=== PATIENT | female | born 1950 | race Caucasian/White ===

== ENCOUNTER 2020-10-29 19:03 | Outpatient (REF) | payer MEDICARE, BC, SELFPAY ==
--- NOTE | 2020-10-29 14:52 | BONE_PTH ---
PATIENT: Dayanna Akers LOC: [facility]#:[id number] AGE/SX: 70/F ROOM: RE10/29/[address]: Thuan Morfin : 1950 BED: DIS: 10/29/2020 SPEC #: [id number] RECD: 11/13/20 11:01 STATUS: MANDEEP CEJA #: [id number] TRAVIS: 10/29/20 14:[address]: Thuan Morfin DEPT: Surgical Specimen RECD BY: Carolynn Duarte Tissues: 1 - BONE BX/CURRETTE NOT PATH FRACTURE Procedures: GROSS AND MICRO LEVEL 4 Comments: [id number] (PATIENT SUBMITTED SAMPLE DIRECTLY TO [facility] ON [facility] FROM OFFICE)
== END 2020-10-29 19:04 | disposition home or self-care (01) ==
LOC: NCHCN 19:03
PROVIDERS: Visit Provider Podiatrist
DX: M1A.0711 Idiopathic chronic gout, right ankle and foot, with tophus (tophi) (principal)
CPT/HCPCS: 88305; 88304